=== PATIENT | female | born 1975 | race Asian ===

== ENCOUNTER 2019-06-06 12:40 | Outpatient (CLI) | payer BC ==
--- NOTE | 2019-06-06 15:40 | RAD ---
LEFT ELBOW RADIOGRAPHS FOUR VIEWS: 06/06/19 PROVIDED CLINICAL HISTORY: Left elbow pain. FINDINGS: No evidence for fracture or other acute osseous abnormality. If there is persistent clinical concern, conservative management and follow-up imaging are advised. IMPRESSION: As above. POS: [id number]
== END 2019-06-06 12:41 | disposition home or self-care (01) ==
LOC: SCSRAD 12:40
PROVIDERS: ATTEND Nurse Practitioner Family
DX: M25.522 Pain in left elbow (principal)

== ENCOUNTER 2020-12-02 09:39 | Outpatient (CLI) | payer BC | END 2020-12-02 09:40 | disposition home or self-care (01) | LOC: TBSIIMAG 09:39 | PROVIDERS: ATTEND Neurological Surgery | DX: M47.26 Other spondylosis with radiculopathy, lumbar region (principal) | CPT/HCPCS: 72148 ==